=== PATIENT | female | born 1975 | race Caucasian/White ===

== ENCOUNTER 2024-07-21 16:29 | Emergency (ER) | payer OTHER, MEDICAID ==
[~2024-07-21] VITALS: Ht 167.6 cm; Wt 120.8 kg
--- NOTE | 2024-07-21 16:37 | ELECTROCARDIOGRAPH REPORT ---
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
--- NOTE | 2024-07-21 17:15 | RADIOLOGY REPORT ---
CHEST RADIOGRAPH Indication: CP Technique: Single frontal view of the chest was obtained Comparison: None FINDINGS: Lines and Tubes: None Lungs and Pleura: No focal consolidation. No effusion. No pneumothorax. Cardiomediastinal contours: Unremarkable Bones: No acute osseous abnormality. IMPRESSION: No acute cardiopulmonary disease.
[2024-07-21 17:45] LABS: BASOPHILS % (AUTO) 0.6 % (0-1); EOSINOPHILS # (AUTO) 0.2 X10'3 (0-0.9); EOSINOPHILS % (AUTO) 3.5 % (0-6); HEMATOCRIT 48.2 % (35.0-45.0); HEMOGLOBIN 16.2 g/dl (12.0-16.0); LYMPHOCYTES % (AUTO) 15.5 % (21-51); MEAN CORPUSCULAR HEMOGLOBIN 33.5 PG (27.0-31.0); MEAN CORPUSCULAR HGB CONC 33.5 g/dL (33.0-36.5); MEAN CORPUSCULAR VOLUME 99.8 FL (78-98); MEAN PLATELET VOLUME 6.7 FL (7.4-10.4); MONOCYTES # (AUTO) 0.4 X10'3 (0-0.9); MONOCYTES % (AUTO) 5.7 % (2-12); NEUTROPHILS # (AUTO) 4.8 X10'3 (1.8-7.7); NEUTROPHILS % (AUTO) 74.7 % (42-75); PLATELET COUNT 336 X10'3 (140-440); RED BLOOD COUNT 4.83 X10'6 (4.20-5.60); RED CELL DISTRIBUTION WIDTH 13.8 % (11.5-14.5); WHITE BLOOD COUNT 6.5 X10'3 (4.5-11.0)
[2024-07-21 18:07] LABS: ALBUMIN 4.1 G/DL (3.4-5.0); ANION GAP 9 (8-16); BLOOD UREA NITROGEN 10 MG/DL (7-18); BUN/CREATININE RATIO 10.9 (10.0-20.0); CALCIUM 9.4 MG/DL (8.5-10.1); CHLORIDE 100 MMOL/L (99-107); CREATININE 0.92 MG/DL (0.40-0.90); GLUCOSE 101 MG/DL (70-104); POTASSIUM 4.2 MMOL/L (3.5-5.1); PRO BRAIN NATRIURETIC PEPTIDE 183 PG/ML (0-125); SODIUM 138 MMOL/L (135-145); TOTAL CARBON DIOXIDE 29.3 MMOL/L (24-32); eCRCL 72 ML/MIN; eGFR 66 ML/MIN
--- NOTE | 2024-07-21 19:36 | Physician Documentation ---
History of Present Illness ~ Chief Complaint: Chest Pain Stated Complaint: CHEST PAIN Time Seen by MD: 19:22 Source: patient Mode of Arrival: POV Exam Limitations: no limitations HPI Chief Complaint: Chest pain Caveat: None Independent Historians: History of Present Illness: Patient is a 48-year-old woman who comes in c omplaining of left-sided chest pain. This began at 2:00 a.m.. Chest pain described as a pressure and squeezing. Chest pain has been nonradiating. Chest pain waxes and wanes. No alleviating or exacerbating factors except for maybe aspirin. Patient to baby aspirin last night at 2:00 a.m. and her symptoms seemed to improve. No nausea vomiting diarrhea. No associated shortness of breath. No associated diaphoresis. Patient states that she has gained over 100 lb since COVID. Patient states that she drinks a bottle of wine a day. Patient does take medication for GERD however she states that this chest pain and symptoms are not the same as her GERD. Review of systems: All systems were reviewed and are negative except for what is indicated in the history of present illness. Past Medical History: COVID, obesity Past Surgical History: None Social History: Smoked marijuana for approximately a decade in her 20s to 30s. No tobacco use, daily wine, one bottle or cocktails in the evening. Medications: Reviewed as documented Nursing Notes Allergies: Reviewed as documented in Nursing Notes Medication Reconciliation Allergies: Coded Allergies: No Known Allergies (Unverified , 07/21/24) Review of Systems All Other Systems at this time: Reviewed and Negative ROS Patient denies any other acute symptoms other than above. All other systems are negative Physical Exam Vital Signs: RN Vital Signs have been reviewed: Yes, Temperature: 98.1, Source: Oral, Heart Rate: 103, Respiratory Rate: 16, BP: 176/86, Pulse Oximetry: 100, Weight: 120.800 Oxygen Flow Rate: 0 Pulse Oximetry Reflects: adequate oxygenation Physical Exam General Appearance: No distress, morbid obesity HEENT: Normal OP, moist oral mucosa, PERRL, EOMI Neck: supple, normal ROM, trachea midline Pulmonary: No respiratory distress, CTA, BS equal Cardiac: RRR, no murmur, rub or gallop, GI: nondistended, soft, nontender, normal bowel sounds, no guarding, no rebound Extremities: normal ROM, no swelling, non-tender Skin: intact, dry, warm, no rashes Neuro: AAOx3, speech is clear, no focal motor weakness Psych: normal affect, good eye contact, no apparent hallucination, normal speech Progress Results/Orders Results/Orders Orders - JOSÉ MIGUEL PLEITEZ MD Hcg Serum Ql (07/21/24 19:38) Troponin (Single) (07/21/24 20:03) Completed Orders - JOSÉ MIGUEL PLEITEZ MD CMP (07/21/24 20:41) Vital Signs 07/21/24 07/21/24 07/21/24 07/21/24 16:39 19:31 19:36 21:56 Temp 98.1 98.1 Pulse 103 82 82 Resp 16 16 16 16 B/P (MAP) 176/86 161/107 (125) 167/94 Pulse Ox 100 99 98 O2 Flow Rate 0 0 Laboratory Tests Test 07/21/24 17:28 07/21/24 20:41 White Blood Count 6.5 Red Blood Count 4.83 Hemoglobin 16.2 H Hematocrit 48.2 H Mean Corpuscular Volume 99.8 H Mean Corpuscular Hemoglobin 33.5 H Mean Corpuscular Hemoglobin Concent 33.5 Red Cell Distribution Width 13.8 Platelet Count 336 Mean Platelet Volume 6.7 L Neutrophils (%) (Auto) 74.7 Lymphocytes (%) (Auto) 15.5 L Monocytes (%) (Auto) 5.7 Eosinophils (%) (Auto) 3.5 Basophils (%) (Auto) 0.6 Neutrophils # (Auto) 4.8 Lymphocytes # (Auto) 1.0 L Monocytes # (Auto) 0.4 Eosinophils # (Auto) 0.2 Basophils # (Auto) 0.0 CBC Comment Sodium Level 138 140 Potassium Level 4.2 4.1 Chloride Level 100 103 Carbon Dioxide Level 29.3 27.5 Anion Gap 9 10 Blood Urea Nitrogen 10 10 Creatinine 0.92 H 0.80 Estimated GFR/1.73 m2 66 77 BUN/Creatinine Ratio 10.9 12.5 Glucose Level 101 103 Calcium Level 9.4 9.1 Troponin I High Sensitivity < 4 L 4 Troponin I High Sens Percent Delta Troponin I Hi Sens Absolute Change Pro-B-Type Natriuretic Peptide 183 H Albumin 4.1 3.7 Chemistry Comments Total Bilirubin 0.9 Aspartate Amino Transf (AST/SGOT) 31 Alanine Aminotransferase (ALT/SGPT) 37 Alkaline Phosphatase 102 Total Protein 7.4 Globulin 3.7 Albumin/Globulin Ratio 1.0 L Medical Decision Making Additional info obtained from: old records Findings Differential diagnosis includes but is not limited to: Acute coronary syndrome, pulmonary embolus, pneumothorax, pericarditis, GERD, referred pain, gastritis, esophageal spasm, biliary colic, chest wall pain EKG independent interpretation: Performed at 4:33 p.m.. Sinus tachycardia, heart rate 104, normal axis, normal ST segments, PVC, Q-waves in V1 through V4 Chest x-ray, single view, indication: Chest pain Independent interpretation: Lungs are clear, normal mediastinum, normal cardiac silhouette Laboratory data independent interpretation: CBC: Hemoglobin and hematocrit are mildly elevated with a hemoglobin is 16.2 CMP: Unremarkable First troponin: <4 2nd troponin: Pro BNP: 183 Urinalysis: Emergency department course/medical decision-making: Patient has chest pain and is at low risk given her heart score of 2-3. However she does have evidence of Q-waves in the precordial leads that is concerning. Based on this I would recommend admission for further cardiac testing and stress test. However the patient is wanting to go home. Test results and need for stress test were discussed with her. She is going to follow up with her primary care doctor for referral to Cardiology. Patient understands the risks. She understands that she will return if she has any recurrent chest pain. Patient is discharged against medical advice. Departure Time of Disposition: 22:01 Disposition: 07 LEFT AGAINST MEDICAL ADVICE Impression: Primary Impression: Chest pain of unknown etiology Condition: Improved Discharge Instructions: Nonspecific Chest Pain, Adult Additional Instructions: PATIENT IS NOT WANTING TO STAY THE NIGHT. ALTHOUGH THE PATIENT DOES HAVE A HEART SCORE OF TWO OR THREE AND IS LIKELY SAFE FOR DISCHARGE I RECOMMENDED ADMISSION FOR FURTHER CARDIAC TESTING GIVEN THE FACT THAT SHE HAS Q-WAVES ON HER EKG. YOU UNDERSTAND THAT YOU NEED FURTHER EVALUATION BY A REGISTERED HEALTH NURSE FOR AN OUTPATIENT STRESS TEST. YOU UNDERSTAND THAT DO WILL RETURN IF YOU HAS ANY RECURRENT CHEST PAIN. RECOMMEND YOU TAKE A BABY ASPIRIN A DAY. Education Educated: Patient Educated regarding: diagnosis, treatment, need for follow up Signature Scribe Signature: No Scribe Attestation: No scribe JOSÉ MIGUEL PLEITEZ MD Jul 21, 2024 19:36
[2024-07-21 21:05] LABS: ALANINE AMINOTRANSFERASE 37 U/L (12-78); ALBUMIN 3.7 G/DL (3.4-5.0); ALKALINE PHOSPHATASE 102 IU/L (46-116); ANION GAP 10 (8-16); ASPARTATE AMINO TRANSFERASE 31 U/L (10-37); BILIRUBIN,TOTAL 0.9 MG/DL (0.1-1.0); BLOOD UREA NITROGEN 10 MG/DL (7-18); BUN/CREATININE RATIO 12.5 (10.0-20.0); CALCIUM 9.1 MG/DL (8.5-10.1); CHLORIDE 103 MMOL/L (99-107); GLUCOSE 103 MG/DL (70-104); POTASSIUM 4.1 MMOL/L (3.5-5.1); SODIUM 140 MMOL/L (135-145); TOTAL CARBON DIOXIDE 27.5 MMOL/L (24-32); TOTAL PROTEIN 7.4 G/DL (6.4-8.2); eCRCL 82 ML/MIN; eGFR 77 ML/MIN
[2024-07-21 21:56] VITALS: BP 167/94; PULSE 82; RESP 16; TEMP 98.1; O2SAT 98
== END 2024-07-21 21:58 | disposition left against medical advice (07) ==
LOC: ER 16:31
DX: R07.89 Other chest pain (principal); K21.9 Gastro-esophageal reflux disease without esophagitis; F12.90 Cannabis use, unspecified, uncomplicated
CPT/HCPCS: 36415; 71045; 80048; 80053; 83880; 84484; 85025; 93005; 99285